=== PATIENT | male | born 1980 | race Caucasian/White ===

== ENCOUNTER → 2020-05-09 | Outpatient (CLI) | payer BC | END | disposition home or self-care (01) | LOC: LAB 18:07 → LAB SHORT 18:07 | DX: R35.0 Frequency of micturition (principal) | CPT/HCPCS: 87086 ==

== ENCOUNTER 2020-05-25 12:02 | Day surgery (SDC) | payer BC ==
[~2020-05-25] VITALS: Ht 177.8 cm; Wt 108.7 kg
== END 2020-05-25 14:18 | disposition home or self-care (01) ==
LOC: ORSCSDS 12:02
DX: K92.1 Melena (principal); R19.7 Diarrhea, unspecified; K21.9 Gastro-esophageal reflux disease without esophagitis; K31.7 Polyp of stomach and duodenum; D12.2 Benign neoplasm of ascending colon; K62.1 Rectal polyp; K57.30 Diverticulosis of large intestine without perforation or abscess without bleeding; K64.8 Other hemorrhoids; R11.2 Nausea with vomiting, unspecified; R12 Heartburn; R14.0 Abdominal distension (gaseous); Z87.891 Personal history of nicotine dependence
CPT/HCPCS: 88305; 88342; J2250; J2704; J7120

== ENCOUNTER 2020-06-09 08:52 | Day surgery (SDC) | payer BC ==
[~2020-06-09] VITALS: Ht 177.8 cm; Wt 112.6 kg
--- NOTE | 2020-06-09 09:26 | NUR ---
Ambulatory in Day Surgery Surgical site prepped with 2% Chlorhexidine cloth wipe. History, Chart, Medications and Allergies reviewed before start of procedure.Lungs clear T/O to Auscultation. Patient confirms NPO status and agrees with scheduled surgery. Pre-Op teaching done. Pt verbalizes understanding.
--- NOTE | 2020-06-09 12:25 | NUR ---
PT DENIES NAUSEA p PO FLUIDS. CONTINUES TO GRIMACE c MOVEMENT, REFUSED PAIN MEDS. IV DC'D, CATH INTACT AND PRESSURE DRESSING APPLIED. GIVEN RX AND DC INSTRUCTIONS. PT VERBALIZES AN UNDERSTANDING. NO QUESTIONS. UMBILICAL DRESSING, CLEAN DRY AND INTACT. DERMABOND IN PLACE, NO OOZING. PT DRESSED c ASSISTANCE. GIVEN LARGE ATHLETIC SUPPORT. OTD IN NAD VIA WC TO BERTHA. VERBALIZES AN UNDERSTANDING. NO QUESTIONS.
== END 2020-06-09 22:44 | disposition home or self-care (01) ==
LOC: ORSCMMR 08:52 → ORD 10:00 → ORSCMMR 22:44
PROVIDERS: Surgery
PROC: 0WQF0ZZ Repair Abdominal Wall, Open Approach (ICD-10-PCS; principal; 2020-06-09 10:00)
PROC: 0YU64JZ Supplement Left Inguinal Region with Synthetic Substitute, Percutaneous Endoscopic Approach (ICD-10-PCS; principal; 2020-06-09 10:00)
PROC: 8E0W4CZ Robotic Assisted Procedure of Trunk Region, Percutaneous Endoscopic Approach (ICD-10-PCS; principal; 2020-06-09 10:00)
DX: K40.90 Unilateral inguinal hernia, without obstruction or gangrene, not specified as recurrent (principal); K42.0 Umbilical hernia with obstruction, without gangrene; E66.9 Obesity, unspecified; Z68.35 Body mass index [BMI] 35.0-35.9, adult
CPT/HCPCS: 49650; 49587; S2900; C1781; J0690; J1100; J2250; J2405; J2704; J3010; J7120